=== PATIENT | female | born 1940 | race Caucasian/White ===

== ENCOUNTER 2021-09-30 15:51 | Inpatient (IN) | payer MEDICARE, OTHER ==
[~2021-09-30] VITALS: Ht 162.6 cm; Wt 75.4 kg
[~2021-09-30 15:51] MED LIST: ARICEPT 5MG TABL5 MG PO; ASPIRIN EC81 MG PO; AZO CRANBERRY1 EACH PO; COREG25 MG PO; COZAAR50 MG PO; DEMADEX20 MG PO; DIGITEK125 MCG PO; DUONEB 2.5-0.5M1 AMP INH; ELIQUIS5 MG PO; FEOSOL325 MG PO; HUMULIN R100 UNIT/2 IM/IV/SC; HYDROCODON-ACE1 EAC2 PO; KEPPRA750 MG PO; KLOR-CON M20 T20 MEQ PO; LASIX40 MG PO; LEXAPRO20 MG PO; LORADAMED10 MG PO; MACROBID100 MG PO; MAGNESIUM400 M2 PO; MULTI-VITAMIN1 EACH PO; NAMENDA 10MG TA10 MG PO; NITROQUIK SL0.4 MG SL; NORVASC5 MG PO; PERFOROMIS20 MCG/2 M INH; PREVALITE4 GM PO; PRILOSEC20 MG PO; PROBIOTIC1 EAC1 PO; PROTONIX 40MG T40 MG PO; PULMICORT0.5 MG/2 M NEB; SINGULAIR10 MG PO; SPIRIVA RESPIMAT4 G1 INH; SYNTHROID88 MCG PO; TESSALON PERLE100 M1 PO; TOVIAZ8 MG PO; TRESIBA FL100 UNIT/1 IM/IV/SC; VIBRAMYCIN100 MG PO; VITAMIN B-121000 MC1 PO; ZENPEP DR 40,01 EACH PO
[2021-09-30 16:12] LABS: BASOPHIL 0.3 % (0-2); EOSINOPHIL 0.1 % (0-7); HCT 30.1 % (37.0-47.0); LYMPHOCYTE 5.2 % (15-48); MCH 29.7 pg (25.0-31.0); MCHC 33.2 g/dL (32.0-36.0); MCV 89.3 fL (78.0-100.0); MPV 9.9 fL (6.0-9.5); NEUTROPHIL 86.6 % (41-80); NRBC 0; PLT 309 K/uL (150-400); RBC 3.37 M/uL (4.20-5.40); RDW 13.4 % (11.5-14.0)
[2021-09-30 16:25] LABS: INR 1.09 (0.9-1.2); PROTHROMBIN TIME 13.5 SECONDS (11.8-13.4); PTT 28.8 SECONDS (24.4-34.7)
[2021-09-30 16:41] LABS: ALBUMIN 3.1 g/dL (3.4-5.0); BILIRUBIN - TOTAL 0.4 mg/dL (0.2-1.0); BUN/CREAT RATIO (CALC) 29.8 RATIO; CREATININE 0.94 mg/dL (0.51-0.95); GLOBULIN (CALCULATION) 3.7 g/dL; POTASSIUM 5.8 mmol/L (3.5-5.1); TOTAL PROTEIN 6.8 g/dL (6.4-8.2)
[2021-09-30 16:49] LABS: INFLUENZA A NAA NEGATIVE (NEGATIVE)
[2021-09-30 16:51] LABS: CORONAVIRUS 2019 SARS-COV-2 POSITIVE (NEGATIVE)
[2021-09-30 17:24] LABS: BILIRUBIN NEGATIVE (NEGATIVE); BLOOD NEGATIVE Ery/uL (NEGATIVE); CLARITY CLEAR (CLEAR); COLOR YELLOW (YELLOW); GLUCOSE (U) NORMAL (NORMAL); LEUKOCYTES NEGATIVE Leu/uL (NEGATIVE); NITRITE NEGATIVE (NEGATIVE); PROTEIN TRACE (LOW) mg/dL (NEGATIVE); SPECIFIC GRAVITY 1.015 (1.001-1.030); UROBILINOGEN 0.2 mg/dL (0.2-1.0); pH 6.5 (5.0-9.0)
[2021-09-30 22:36] LABS: FT4 (FREE T4) 1.2 ng/dL (0.76-1.46)
[2021-10-01 06:36] LABS: BASOPHIL 0.1 % (0-2); EOSINOPHIL 0 % (0-7); HGB 9.6 g/dl (12.5-16.0); LYMPHOCYTE 5.4 % (15-48); MCH 29.7 pg (25.0-31.0); MCHC 33.1 g/dL (32.0-36.0); MCV 89.8 fL (78.0-100.0); MONOCYTE 4.8 % (0-12); MPV 9.7 fL (6.0-9.5); NEUTROPHIL 88.5 % (41-80); NRBC 0; PLT 215 K/uL (150-400); RBC 3.23 M/uL (4.20-5.40); RDW 13.3 % (11.5-14.0); WBC 13.7 K/uL (4.0-10.5)
[2021-10-01 06:59] LABS: BUN/CREAT RATIO (CALC) 32.1 RATIO; CREATININE 0.81 mg/dL (0.51-0.95)
[2021-10-01 20:19] LABS: BUN/CREAT RATIO (CALC) 28.8 RATIO; CREATININE 1.11 mg/dL (0.51-0.95); POTASSIUM 4.2 mmol/L (3.5-5.1)
[2021-10-02 06:31] LABS: BASOPHIL 0 % (0-2); EOSINOPHIL 0 % (0-7); HCT 26.6 % (37.0-47.0); HGB 8.6 g/dl (12.5-16.0); LYMPHOCYTE 6.7 % (15-48); MCH 29.2 pg (25.0-31.0); MCHC 32.3 g/dL (32.0-36.0); MCV 90.2 fL (78.0-100.0); MONOCYTE 4.7 % (0-12); MPV 10.3 fL (6.0-9.5); NEUTROPHIL 87.6 % (41-80); NRBC 0; PLT 241 K/uL (150-400); RBC 2.95 M/uL (4.20-5.40); RDW 13.3 % (11.5-14.0); WBC 9.4 K/uL (4.0-10.5)
[2021-10-02 06:59] LABS: ALBUMIN 2.5 g/dL (3.4-5.0); BILIRUBIN - TOTAL 0.3 mg/dL (0.2-1.0); BUN/CREAT RATIO (CALC) 36.3 RATIO; C-REACTIVE PROTEIN 7.7 mg/dL (<=0.90); CREATININE 1.02 mg/dL (0.51-0.95); GLOBULIN (CALCULATION) 3.5 g/dL; MAGNESIUM 1.9 mg/dL (1.8-2.4); POTASSIUM 4.2 mmol/L (3.5-5.1)
[2021-10-02] MEDS ORDERED: NAMENDA 10MG TA10 MG PO (17:46)
[2021-10-02] MEDS ORDERED: DIGITEK125 MCG PO (17:47)
[2021-10-02] MEDS ORDERED: OMEPRAZOLE40 MG PO (17:48)
[2021-10-02] MEDS ORDERED: NOVOLOG DO100 UNIT/M SC (17:49)
[2021-10-02] MEDS ORDERED: ARTHRITIS PAIN50 GM TOP (17:52)
[2021-10-02] MEDS ORDERED: TORSEMIDE20 MG PO (18:53)
--- NOTE | 2021-10-03 13:48 | NUR ---
10/03/21 Ms Jin lives with her son and [id number]. She has a hospital bed, lift chair, rw and s. chair. Per conversation with Gabrielle Davin, [phone], they do no t wish to have services at discharge. Ms. Jin chose [facility] for 02 needs. A referral was made to [facility] for 02 at 2 L.
[2021-10-03] MEDS ORDERED: COZAAR50 MG PO (18:13)
[2021-10-03] MEDS ORDERED: ALDACTONE25 MG PO (18:14)
[2021-10-04 06:28] LABS: BASOPHIL 0 % (0-2); EOSINOPHIL 0 % (0-7); HCT 24.6 % (37.0-47.0); HGB 7.9 g/dl (12.5-16.0); LYMPHOCYTE 13.7 % (15-48); MCH 29.6 pg (25.0-31.0); MCHC 32.1 g/dL (32.0-36.0); MCV 92.1 fL (78.0-100.0); MONOCYTE 6.2 % (0-12); MPV 9.7 fL (6.0-9.5); NEUTROPHIL 79.3 % (41-80); NRBC 0; PLT 214 K/uL (150-400); RBC 2.67 M/uL (4.20-5.40); RDW 13.3 % (11.5-14.0); WBC 5.2 K/uL (4.0-10.5)
[2021-10-04 06:46] LABS: BUN/CREAT RATIO (CALC) 71.4 RATIO; CREATININE 0.77 mg/dL (0.51-0.95); POTASSIUM 4.3 mmol/L (3.5-5.1)
[2021-10-05 06:20] LABS: BASOPHIL 0 % (0-2); EOSINOPHIL 0 % (0-7); HCT 23.3 % (37.0-47.0); HGB 7.6 g/dl (12.5-16.0); LYMPHOCYTE 10.2 % (15-48); MCH 29.3 pg (25.0-31.0); MCHC 32.6 g/dL (32.0-36.0); MONOCYTE 5.5 % (0-12); MPV 9.7 fL (6.0-9.5); NEUTROPHIL 83.8 % (41-80); NRBC 0; PLT 223 K/uL (150-400); RBC 2.59 M/uL (4.20-5.40); RDW 13.2 % (11.5-14.0); WBC 5.7 K/uL (4.0-10.5)
[2021-10-05 06:43] LABS: BUN/CREAT RATIO (CALC) 65.4 RATIO; CREATININE 0.81 mg/dL (0.51-0.95); POTASSIUM 4.5 mmol/L (3.5-5.1)
[2021-10-05] MEDS ORDERED: COREG25 MG PO (08:19)
[2021-10-05] MEDS ORDERED: DEXAMETHASONE 2M2 MG PO (08:19)
== END 2021-10-05 12:20 | disposition home or self-care (01) | DRG 871 ==
LOC: FER 15:51 → FTCU 17:56 → FICU 17:56 → FTCU 10-01 09:10 → FMS 10-02 20:08
PROVIDERS: Emergency Medicine; Family Medicine; Nurse Practitioner; ADMIT Internal Medicine
PROC: 8E0ZXY6 Isolation (ICD-10-PCS; 2021-09-30)
PROC: XW033E5 Introduction of Remdesivir Anti-infective into Peripheral Vein, Percutaneous Approach, New Technology Group 5 (ICD-10-PCS; principal; 2021-10-01)
PROC: XW0DXM6 Introduction of Baricitinib into Mouth and Pharynx, External Approach, New Technology Group 6 (ICD-10-PCS; 2021-10-02)
DX: A41.89 Other specified sepsis (principal); U07.1 COVID-19; J12.82 Pneumonia due to coronavirus disease 2019; J96.01 Acute respiratory failure with hypoxia; J15.9 Unspecified bacterial pneumonia; I50.23 Acute on chronic systolic (congestive) heart failure; E87.1 Hypo-osmolality and hyponatremia; J44.0 Chronic obstructive pulmonary disease with (acute) lower respiratory infection; N30.00 Acute cystitis without hematuria; I48.20 Chronic atrial fibrillation, unspecified; E87.2 Acidosis; Z66 Do not resuscitate; R65.20 Severe sepsis without septic shock; I27.20 Pulmonary hypertension, unspecified; G40.909 Epilepsy, unspecified, not intractable, without status epilepticus; I11.0 Hypertensive heart disease with heart failure; I50.9 Heart failure, unspecified; G47.33 Obstructive sleep apnea (adult) (pediatric); E11.9 Type 2 diabetes mellitus without complications; E78.5 Hyperlipidemia, unspecified; E87.5 Hyperkalemia; E03.9 Hypothyroidism, unspecified; M10.9 Gout, unspecified; D50.9 Iron deficiency anemia, unspecified; F32.A Depression, unspecified; E55.9 Vitamin D deficiency, unspecified; Z95.0 Presence of cardiac pacemaker; Z95.5 Presence of coronary angioplasty implant and graft; Z90.49 Acquired absence of other specified parts of digestive tract; I25.2 Old myocardial infarction; Z85.828 Personal history of other malignant neoplasm of skin; Z86.73 Personal history of transient ischemic attack (TIA), and cerebral infarction without residual deficits; Z87.891 Personal history of nicotine dependence; Z88.0 Allergy status to penicillin; Z88.1 Allergy status to other antibiotic agents; Z88.5 Allergy status to narcotic agent; Z88.8 Allergy status to other drugs, medicaments and biological substances; Z79.899 Other long term (current) drug therapy; Z79.82 Long term (current) use of aspirin
CPT/HCPCS: 36415; 36600; 70450; 71045; 71250; 80048; 80053; 80162; 80299; 81003; 82803; 82947; 82962; 83605; 83735; 83880; 83930; 83935; 84145; 84295; 84300; 84439; 84443; 84484; 85025; 85610; 85730; 86140; 87040; 87076; 87088; 87186; 93005; 94640; 94660; 94667; 94668; 96365; 96375; 97162; 97166; 97530-GP; 97535; C9399; J0360; J0456; J0696; J1100; J1650; J1815; J7040; J7050; J8540; U0002